=== PATIENT | female | born 1945 | race Caucasian/White ===

== ENCOUNTER → 2017-08-05 | Outpatient (CLI) | payer OTHER ==
[~2017-08-05] MED LIST: ASPIRIN325 MG PO; FISH OIL300 MG PO; LEVAQUIN500 MG PO; LEVOTHYROXINE75 MCG PO; PYRIDIUM200 MG PO; TYLENOL WITH C1 EACH PO; VITAMIN B CO1 TABLET PO; VITAMIN D31000 UNI2 PO
== END | disposition home or self-care (01) ==
LOC: RES 10:40
DX: J98.8 Other specified respiratory disorders (principal); R94.2 Abnormal results of pulmonary function studies
CPT/HCPCS: 94060; 94726; 94729